=== PATIENT | male | born 1990 | race Caucasian/White ===

== ENCOUNTER 2018-01-13 16:30 | Emergency (ER) | payer OTHER ==
[2018-01-13 18:02] VITALS: BP 107/65
[2018-01-13] MEDS ORDERED: Acetaminophen TAB* 325 MG PO ONE (18:04)
--- NOTE | 2018-01-13 19:21 | UC ---
HPI Febrile Illness - HPI Summary HPI Summary: Pt presents with sudden onset of fever, back pain, head ache and lower leg pain , neck pain, upper extremity weakness bilateral. Pt reports jamie he cut his left hand on metal wire 1 week ago. Is UTD with tetanus - History of Current Complaint Hx Obtained From: Patient Onset/Duration: Atraumatic Timing: Constant Initial Severity: Mild Current Severity: Moderate Pain Intensity: 8 Pain Scale Used: 0-10 Numeric Associated Signs and Symptoms: Headache, Stiff Neck - Risk Factors Pseudomonas Risk Factors: Negative <Luisana Reno NP - Last Filed: 01/13/18 19:16> <Elle Meeks - Last Filed: 01/13/18 20:19> - History of Current Complaint Chief Complaint: UCGeneralIllness Time Seen by Provider: 01/13/18 17:55 - Allergy/Home Medications Allergies/Adverse Reactions: Allergies Allergy/AdvReac Type Severity Reaction Status Date / Time No Known Allergies Allergy Verified 01/13/18 17:59 Home Medications: Home Medications NK [No Home Medications Reported] 01/13/18 [History Confirmed 01/13/18] PMH/Surg Hx/FS Hx/Imm Hx Previously Healthy: Yes - Surgical History Surgical History: Yes Surgery Procedure, Year, and Place: WIDE EXCISION ON BACK - Family History Known Family History: Positive: Cardiac Disease - Social History Occupation: Employed Full-time Lives: With Family Alcohol Use: Occasionally Substance Use Type: None Smoking Status (MU): Never Smoked Tobacco Have You Smoked in the Last Year: No <Luisana Reno NP - Last Filed: 01/13/18 19:16> Review of Systems Constitutional: Fever, Chills, Fatigue Skin: Negative Eyes: Negative ENT: Negative Respiratory: Negative Cardiovascular: Negative Gastrointestinal: Negative Genitourinary: Negative Motor: Negative Neurovascular: Negative Musculoskeletal: Arthralgia - spinal tenderness,, Myalgia Neurological: Weakness - upper and lower extremity Psychological: Negative Is Patient Immunocompromised?: No All Other Systems Reviewed And Are Negative: Yes <Luisana Reno NP - Last Filed: 01/13/18 19:16> Physical Exam Triage Information Reviewed: Yes Appearance: Ill-Appearing Vital Signs: Initial Vital Signs Temp 103.1 F 01/13/18 17:54 Pulse 112 01/13/18 17:54 Resp 18 01/13/18 17:54 BP 107/65 01/13/18 17:54 Pulse Ox 98 01/13/18 17:54 Eye Exam: Normal ENT Exam: Normal Dental Exam: Normal Neck: Positive: Tenderness @ - occipital base Respiratory Exam: Normal Cardiovascular Exam: Normal Abdominal Exam: Normal Musculoskeletal Exam: Other Musculoskeletal: Positive: Strength Limited @ - upper and lower extremity Neurological: Positive: Alert, Muscle Tone Normal Psychological Exam: Normal Skin Exam: Normal <Luisana Reno NP - Last Filed: 01/13/18 19:16> Vital Signs: Initial Vital Signs Temp 103.1 F 01/13/18 17:54 Pulse 112 01/13/18 17:54 Resp 18 01/13/18 17:54 BP 107/65 01/13/18 17:54 Pulse Ox 98 01/13/18 17:54 <Elle Meeks - Last Filed: 01/13/18 20:19> Diagnostics - Laboratory Diagnostic Studies Completed/Ordered: rapid flu: negative. <Luisana Reno NP - Last Filed: 01/13/18 19:16> Course/Dx - Course Course Of Treatment: I discussed with the pt my concern for, fever, back pain, and upper and lower extremity weakness. I suggested that the pt go to the ER for further evaluation and testing regarding fever, back pain, neck and gordon. - Febrile Illness Differential Diagnoses: Encephalitis, Meningitis, Viremia - Diagnoses Clinic Provider Diagnoses: fever unknown origin <Luisana Reno NP - Last Filed: 01/13/18 19:16> Discharge - Sign-Out/Discharge Documenting (check all that apply): Discharge/Admit/Transfer - Billing Disposition and Condition Condition: STABLE Disposition: HOME <Luisana Reno NP - Last Filed: 01/13/18 19:16> - Billing Disposition and Condition Condition: STABLE Disposition: HOME <Elle Meeks - Last Filed: 01/13/18 20:19> - Discharge Plan Condition: Stable Disposition: HOME Patient Education Materials: Fever in Adults (ED), Back Pain (ED) Referrals: Patel Campos MD [Primary Care Provider] - As Soon As Possible Additional Instructions: We have recommended that you go directly to the closest Emergency Room for further evaluation and testing. Attestation Statement User Type: Provider - I was available for consult. This patient was seen by the GEORGE. The patient was not presented to, seen by, or examined by me. -Nils <Elle Meeks - Last Filed: 01/13/18 20:19>
== END 2018-01-13 18:41 | disposition home or self-care (01) ==
LOC: UCCORT 16:30
DX: R50.9 Fever, unspecified (principal)
CPT/HCPCS: 87502; 99212; A9270-GY; G0463